=== PATIENT | female | born 1945 | race Caucasian/White ===

== ENCOUNTER 2017-03-07 07:39 | Day surgery (SDC) | payer OTHER ==
[~2017-03-07 07:39] MED LIST: CYMBALTA60 MG PO; HUMALOG100 UNIT/2 SC; LANTUS 3 M100 UNITS1 SC; NIACIN 500 MG1 EACH PO; PRAVASTATIN SOD20 MG PO; RENVELA800 MG PO; SENSIPAR60 MG PO; TUMS500 MG PO
[2017-03-07 08:45] LABS: POINT-OF-CARE METER ID UU13113696
[2017-03-07 09:37] LABS: METH RESISTANT S AUREUS PCR NEGATIVE (NEGATIVE); PROBE CHECK PASS; SPECIMEN PROCESSING CONTROL PASS
[2017-03-07] MEDS ORDERED: COZAAR25 MG PO (11:03)
[2017-03-07] MEDS ORDERED: METOPROLOL SUCC50 MG PO (11:04)
[2017-03-07] MEDS ORDERED: NITROGLYCERIN0.4 MG SL (11:05)
[2017-03-07] MEDS ORDERED: PRAVACHOL20 MG PO (11:06)
== END 2017-03-07 10:26 | disposition home or self-care (01) ==
LOC: CATH 07:39
PROVIDERS: Surgery
DX: T82.858A Stenosis of other vascular prosthetic devices, implants and grafts, initial encounter (principal); E11.22 Type 2 diabetes mellitus with diabetic chronic kidney disease; N18.6 End stage renal disease; Z99.2 Dependence on renal dialysis; E78.5 Hyperlipidemia, unspecified; Z86.73 Personal history of transient ischemic attack (TIA), and cerebral infarction without residual deficits; Z79.4 Long term (current) use of insulin; Y83.2 Surgical operation with anastomosis, bypass or graft as the cause of abnormal reaction of the patient, or of later complication, without mention of misadventure at the time of the procedure
CPT/HCPCS: 82948; 87641; C1725; C1769; C1894; J1644; J2250; J3010

== ENCOUNTER → 2017-04-19 | Outpatient (CLI) | payer OTHER ==
[~2017-04-19] MED LIST changes: +COZAAR25 MG PO; +METOPROLOL SUCC50 MG PO; +NITROGLYCERIN0.4 MG SL; +PRAVACHOL20 MG PO
== END | disposition home or self-care (01) ==
LOC: AMB 12:03
PROC: 02PYX3Z Removal of Infusion Device from Great Vessel, External Approach (ICD-10-PCS; principal; 2017-04-19)
DX: Z45.2 Encounter for adjustment and management of vascular access device (principal); N18.6 End stage renal disease; Z99.2 Dependence on renal dialysis